=== PATIENT | female | born 1990 | race Caucasian/White ===

== ENCOUNTER → 2022-11-09 13:15 | Outpatient (BNVA) | payer BC, MEDICAID, SELFPAY | PROVIDERS: Visit Provider Nurse Practitioner Family | DX: S99.922A Unspecified injury of left foot, initial encounter (principal); W19.XXXA Unspecified fall, initial encounter | CPT/HCPCS: 73630 ==

== ENCOUNTER → 2023-08-11 09:35 | Outpatient (BNVA) | payer BC, MEDICAID, SELFPAY | PROVIDERS: Visit Provider Nurse Practitioner | DX: J30.2 Other seasonal allergic rhinitis (principal); J30.81 Allergic rhinitis due to animal (cat) (dog) hair and dander; L23.81 Allergic contact dermatitis due to animal (cat) (dog) dander; J20.9 Acute bronchitis, unspecified; Z76.89 Persons encountering health services in other specified circumstances; J45.40 Moderate persistent asthma, uncomplicated; F41.8 Other specified anxiety disorders | CPT/HCPCS: 80053; 80061; 84443; 85025 ==

== ENCOUNTER → 2023-10-24 09:53 | Outpatient (BNVA) | payer BC, MEDICAID, SELFPAY | PROVIDERS: PCP Nurse Practitioner; Visit Provider Nurse Practitioner | DX: R73.9 Hyperglycemia, unspecified (principal) | CPT/HCPCS: 83036 ==

== ENCOUNTER → 2025-06-17 09:38 | Outpatient (BNVA) | payer BC, MEDICAID, SELFPAY | PROVIDERS: PCP Nurse Practitioner Family; Visit Provider Nurse Practitioner Family | DX: F41.1 Generalized anxiety disorder (principal); I10 Essential (primary) hypertension; L25.9 Unspecified contact dermatitis, unspecified cause | CPT/HCPCS: 80053; 82607; 82652; 84443; 85025; 86003; 86008 ==